=== PATIENT | female | born 1950 | race Caucasian/White ===

== ENCOUNTER 2022-03-26 11:53 | Outpatient (CLI) | payer MEDICARE, BC | END 2022-03-26 11:54 | disposition home or self-care (01) | LOC: CSHWCC 11:53 | PROVIDERS: ATTEND Nurse Practitioner Family | DX: I87.311 Chronic venous hypertension (idiopathic) with ulcer of right lower extremity (principal); L97.812 Non-pressure chronic ulcer of other part of right lower leg with fat layer exposed; R60.0 Localized edema | CPT/HCPCS: 11042; 97139; G0463; 99203 ==

== ENCOUNTER 2022-04-04 13:14 | Outpatient (CLI) | payer MEDICARE, BC | END 2022-04-04 13:15 | disposition home or self-care (01) | LOC: CSHWCC 13:14 | PROVIDERS: ATTEND Nurse Practitioner Family | DX: I87.311 Chronic venous hypertension (idiopathic) with ulcer of right lower extremity (principal); L97.812 Non-pressure chronic ulcer of other part of right lower leg with fat layer exposed; R60.0 Localized edema | CPT/HCPCS: 29581 ==

== ENCOUNTER 2022-04-11 13:11 | Outpatient (CLI) | payer MEDICARE, BC | END 2022-04-11 13:12 | disposition home or self-care (01) | LOC: CSHWCC 13:11 | PROVIDERS: ATTEND Nurse Practitioner Family | DX: I87.311 Chronic venous hypertension (idiopathic) with ulcer of right lower extremity (principal); L97.812 Non-pressure chronic ulcer of other part of right lower leg with fat layer exposed; R60.0 Localized edema | CPT/HCPCS: 11042 ==

== ENCOUNTER 2022-04-18 14:44 | Outpatient (CLI) | payer MEDICARE, BC | END 2022-04-18 14:45 | disposition home or self-care (01) | LOC: CSHWCC 14:44 | PROVIDERS: ATTEND Nurse Practitioner Family | DX: I87.311 Chronic venous hypertension (idiopathic) with ulcer of right lower extremity (principal); L97.812 Non-pressure chronic ulcer of other part of right lower leg with fat layer exposed; R60.0 Localized edema | CPT/HCPCS: 29581 ==

== ENCOUNTER 2022-04-25 15:09 | Outpatient (CLI) | payer MEDICARE, BC | END 2022-04-25 15:10 | disposition home or self-care (01) | LOC: CSHWCC 15:09 | PROVIDERS: ATTEND Nurse Practitioner Family | DX: I87.311 Chronic venous hypertension (idiopathic) with ulcer of right lower extremity (principal); L97.812 Non-pressure chronic ulcer of other part of right lower leg with fat layer exposed; R60.0 Localized edema | CPT/HCPCS: 29581 ==

== ENCOUNTER 2022-04-30 14:37 | Outpatient (CLI) | payer MEDICARE, BC | END 2022-04-30 14:38 | disposition home or self-care (01) | LOC: CSHWCC 14:37 | PROVIDERS: ATTEND Nurse Practitioner Family | DX: I87.311 Chronic venous hypertension (idiopathic) with ulcer of right lower extremity (principal); L97.812 Non-pressure chronic ulcer of other part of right lower leg with fat layer exposed; R60.0 Localized edema | CPT/HCPCS: 99213; G0463 ==

== ENCOUNTER 2022-05-03 14:42 | Outpatient (CLI) | payer MEDICARE, BC | END 2022-05-03 14:43 | disposition home or self-care (01) | LOC: CSHWCC 14:42 | PROVIDERS: ATTEND Nurse Practitioner Family | DX: I87.311 Chronic venous hypertension (idiopathic) with ulcer of right lower extremity (principal); L97.812 Non-pressure chronic ulcer of other part of right lower leg with fat layer exposed; R60.0 Localized edema ==

== ENCOUNTER 2022-05-07 14:53 | Outpatient (CLI) | payer MEDICARE, BC | END 2022-05-07 14:54 | disposition home or self-care (01) | LOC: CSHWCC 14:53 | PROVIDERS: ATTEND Nurse Practitioner Family | DX: I87.311 Chronic venous hypertension (idiopathic) with ulcer of right lower extremity (principal); L97.812 Non-pressure chronic ulcer of other part of right lower leg with fat layer exposed; R60.0 Localized edema | CPT/HCPCS: 99213; G0463 ==